=== PATIENT | female | born 1940 | race Hispanic/Latino ===

== ENCOUNTER → 2018-08-26 | Outpatient (CLI) | payer MEDICARE ==
[~2018-08-26] VITALS: Ht 157.5 cm; Wt 86.6 kg
[~2018-08-26] MED LIST: AMLO10TA7 PO; ATOR40TA71 PO; BENA20TA10 PO; GLIP5TAB11 PO; HYDR12.54 PO; INSU100V37 SQ; ISOS30TA6 PO; METF-446 PO; NITR0.4T50 SL; PIOG15TA66 PO; SODIUM CHLORIDE 0.9% 1000ML 1,000 ML IV SCH
[2018-08-26 10:30] VITALS: BP 142/51
[2018-08-26 10:53] LABS: BASOPHILS % (AUTO) 0.7 % (0.0-5.0); EOSINOPHILS % (AUTO) 2.4 % (0.0-8.0); HEMATOCRIT 29.7 % (36-48); LYMPHOCYTES % (AUTO) 20.7 % (21.0-51.0); MEAN CORPUSCULAR HEMOGLOBIN 28.3 pg (27.0-33.0); MEAN CORPUSCULAR HGB CONC 33.3 g/dL (32.0-36.0); MEAN CORPUSCULAR VOLUME 84.9 fL (79-99); NEUTROPHILS % (AUTO) 68.2 % (40.0-77.0); PLATELET COUNT (AUTO) 309 K/uL (130-400); WHITE BLOOD COUNT (AUTO) 8.9 K/uL (4.8-10.8)
[2018-08-26 11:05] LABS: APPEARANCE,URINE Cloudy (CLEAR); BILIRUBIN,URINE Negative (NEGATIVE); COLOR,URINE Yellow (YELLOW); GLUCOSE, URINE (UA) Negative (NEGATIVE); KETONES,URINE Trace mg/dL (NEGATIVE); LEUKOCYTE ESTERASE ,URINE Large (NEGATIVE); NITRATE,URINE Negative (NEGATIVE); OCCULT BLOOD,URINE Negative (NEGATIVE); PROTEIN,URINE Negative (NEGATIVE)
[2018-08-26 11:09] LABS: CREATININE 1.1 mg/dL (0.5-1.5)
--- NOTE | 2018-08-26 11:15 | NUR ---
NAURUAN PT PREFERS NAURUAN FOR INSTRUCTIONS AND CONSENT
[2018-08-26 11:25] LABS: BACTERIA,URINE Moderate /HPF (None Seen); MUCUS,URINE Few LPF (None Seen); RBC,URINE None Seen /HPF (0-1); WBC,URINE 51-100 /HPF (0-1)
[2018-08-26 12:14] LABS: INR 0.94 (0.85-1.15); PARTIAL THROMBOPLASTIN TIME 26.5 SEC (26.3-35.5); PROTHROMBIN TIME 9.9 SEC (9.6-11.6)
--- NOTE | 2018-08-27 13:33 | NUR ---
NOTE REPORTED ABNORMAL LABS H&H, UA, TO [facility], ORDERS ARE PER DR ABDUL, PT IS TO BE RESCHEDULED , AND FOLLOW UP IN HIS OFFICE NEXT WEEK
== END ==
LOC: EDSTATUS 10:00 → DAH 10:00
PROVIDERS: ATTEND Internal Medicine Cardiovascular Disease
DX: Z01.818 Encounter for other preprocedural examination (principal); I25.119 Atherosclerotic heart disease of native coronary artery with unspecified angina pectoris
CPT/HCPCS: 36415; 71045; 80048; 81001; 85025; 85610; 85730; 93005

== ENCOUNTER 2018-10-11 18:09 | Observation (INO) | payer MEDICARE ==
[~2018-10-11] VITALS: Ht 160 cm; Wt 85.0 kg
[~2018-10-11 18:09] MED LIST changes: -SODIUM CHLORIDE 0.9% 1000ML 1,000 ML IV SCH
[2018-10-11 18:34] LABS: BASOPHILS % (AUTO) 0.3 % (0.0-5.0); EOSINOPHILS % (AUTO) 3.3 % (0.0-8.0); HEMATOCRIT 30.3 % (36-48); LYMPHOCYTES % (AUTO) 26.1 % (21.0-51.0); MEAN CORPUSCULAR HEMOGLOBIN 28.7 pg (27.0-33.0); MEAN CORPUSCULAR HGB CONC 33.7 g/dL (32.0-36.0); MEAN CORPUSCULAR VOLUME 85.2 fL (79-99); MONOCYTES % (AUTO) 10.3 % (3.0-13.0); PLATELET COUNT (AUTO) 339 K/uL (130-400); RED BLOOD CELL COUNT(AUTO) 3.56 MIL/uL (4.00-5.50); RED CELL DISTRIBUTION WIDTH 14.2 % (11.0-15.5); WHITE BLOOD COUNT (AUTO) 8.1 K/uL (4.8-10.8)
[2018-10-11 18:47] LABS: CREATININE 1.2 mg/dL (0.5-1.5); INR 0.9 (0.85-1.15); PARTIAL THROMBOPLASTIN TIME 28.7 SEC (26.3-35.5); POTASSIUM 4.1 mmol/L (3.5-5.1); PROTHROMBIN TIME 9.5 SEC (9.6-11.6)
[2018-10-11 18:52] LABS: ALBUMIN 3.5 g/dL (3.5-5.0); BILIRUBIN,TOTAL 0.2 mg/dL (0.2-1.0); TOTAL PROTEIN, SERUM 7.4 g/dL (6.0-8.3)
[2018-10-11] MEDS ORDERED: DEXTROSE 50%-WATER 50 ML DISP.SYRIN IV ONE (20:13)
--- NOTE | 2018-10-11 23:25 | NUR ---
ASSESSMENT PATIENT TRANSFERRED FROM [facility]. DX: TIA. PATIENT DENIES CHEST PAIN, SHORTNESS OF BREATH AND NUMBNESS. ON ROOM AIR. RESPIRATIONS UNLABORED. SINUS RHYTHM HR 60'S. SEE DOCUMENTATION FOR FULL ASSESSMENT. CALL LIGHT WITHIN REACH. INSTRUCTED PATIENT AND FAMILY TO CALL IF ASSISTANCE IS NEEDED.
[2018-10-12] VITALS (7 sets, daily range): BP systolic 105–149; BP diastolic 47–94
[2018-10-12] MEDS ORDERED: ONDANSETRON HCL MDV 20ML 2 MG/ML VIAL IVP PRN (01:45)
[2018-10-12] MEDS ORDERED: ACETAMINOPHEN 325 MG TAB PO PRN (01:45)
[2018-10-12] MEDS ORDERED: PHARMACY COMMUNICATION MISC SCH (01:45)
[2018-10-12] MEDS ORDERED: LEVO500T89 PO (01:50)
[2018-10-12] MEDS ORDERED: KETO5DRO39 OU (01:50)
[2018-10-12] MEDS ORDERED: FERR325T22 PO (01:50)
--- NOTE | 2018-10-12 07:35 | NUR ---
ASSESSMENT ENCOUNTERED PT A&OX3, CALM COOPERATIVE AND DOES NOT APPEAR TO BE IN ANY DISTRESS NOR ANY NEURO DEFICITS PRESENT. PT DENIES PAIN, SOB, NAUSEA. PT IS ABLE TO TOLERATE FOODS AND FLUIDS WITH NO THROAT CLEARING OR COUGH. CALL LIGHT WITHIN REACH, FAMILY AT BEDSIDE.
[2018-10-12] MEDS ORDERED: LORAZEPAM 2 MG/ML 1 ML VIAL IVP SCH (12:00)
[2018-10-12] MEDS ORDERED: LORAZEPAM 2 MG/ML 1 ML VIAL ONE (12:05)
[2018-10-12] MEDS ORDERED: GUAIFENESIN-DM 200/20 MG 10 ML ONE (14:09)
[2018-10-12] MEDS: PANTOPRAZOLE SODIUM 40 MG TABLET.DR PO SCH (14:26)
[2018-10-12] MEDS: LEVOFLOXACIN 500 MG TABLET PO SCH (14:26)
[2018-10-12] MEDS: INSULIN HUMULIN R 100 UNIT/ML 3ML SQ SCH ×2 (16:30→22:17)
[2018-10-12] MEDS: SIMVASTATIN 20 MG TABLET PO SCH (21:00)
[2018-10-12] MEDS: GLIPIZIDE 5 MG TABLET PO SCH (22:21)
[2018-10-12] MEDS: ATORVASTATIN CALCIUM 40 MG TABLET PO SCH (22:21)
[2018-10-12] MEDS: GUAIFENESIN-DM 200/20 MG 10 ML PO PRN (22:22)
[2018-10-13 03:48] VITALS: BP 122/50
[2018-10-13 04:26] LABS: HEMATOCRIT 29.3 % (36-48); MEAN CORPUSCULAR HEMOGLOBIN 28.2 pg (27.0-33.0); MEAN CORPUSCULAR HGB CONC 33.5 g/dL (32.0-36.0); MEAN CORPUSCULAR VOLUME 84.2 fL (79-99); NUCLEATED RED BLOOD CELLS 0.1 % (0.0-0.19); PLATELET COUNT (AUTO) 328 K/uL (130-400); RED BLOOD CELL COUNT(AUTO) 3.48 MIL/uL (4.00-5.50)
[2018-10-13 04:33] LABS: HEMOGLOBIN A1C 7.9 % (4.0-6.0)
[2018-10-13 04:40] LABS: POTASSIUM 3.9 mmol/L (3.5-5.1)
[2018-10-13] MEDS: INSULIN HUMULIN R 100 UNIT/ML 3ML SQ SCH ×4 (05:53→21:00)
[2018-10-13 07:34] VITALS: BP 140/69
--- NOTE | 2018-10-13 08:35 | NUR ---
MD ROUNDS DR. TAMEZ IN TO SEE PATIENT. PT TO BE DISCHARGED HOME IF OKAY WITH DR. PEREZ.
[2018-10-13] MEDS: GUAIFENESIN-DM 200/20 MG 10 ML PO PRN (09:32)
[2018-10-13] MEDS: AMLODIPINE BESYLATE 5 MG TAB PO SCH (09:32)
[2018-10-13] MEDS: PIOGLITAZONE HCL 15 MG TAB PO SCH (09:32)
[2018-10-13] MEDS: HYDROCHLOROTHIAZIDE 25 MG TABLET PO SCH (09:33)
[2018-10-13] MEDS: PANTOPRAZOLE SODIUM 40 MG TABLET.DR PO SCH (09:33)
[2018-10-13] MEDS: FERROUS SULFATE 325 MG TABLET.DR PO SCH (09:33)
[2018-10-13] MEDS: BENAZEPRIL HCL 10 MG TABLET PO SCH (09:33)
[2018-10-13] MEDS: GLIPIZIDE 5 MG TABLET PO SCH ×2 (09:33→20:44)
--- NOTE | 2018-10-13 10:00 | NUR ---
MD ROUNDS DR. PEREZ IN TO SEE PT. NEW ORDERS RECEIVED TO BE CARRIED OUT.
--- NOTE | 2018-10-13 10:39 | NUR ---
INFORMED DR. TAMEZ OF NEW ORDERS FROM DR. PEREZ. PER DR. TAMEZ, LORI AND ENT CONSULT MAY BE DONE OUTPATIENT. PT IS OK TO START ASA 81 MG PO DAILY.
[2018-10-13 11:16] VITALS: BP 132/64
--- NOTE | 2018-10-13 11:20 | NUR ---
DYSPHAGIA EVAL COMPLETE. -S/S OF ASPIRATION. RECOMMEND REGULAR, THIN LIQUID DIET; PILLS WHOLE WITH LIQUIDS. PATIENT INFORMATION: Pt IS A 78 Y.O. FEMALE REFERRED FOR A BEDSIDE DYSPHAGIA EVALUATION SECONDARY TO TIA. Pt AAOX3 AND COOPERATIVE DURING THE EVALUATION. DAUGHTER PRESENT AT BEDSIDE DURING THE EVALUATION. DAUGHTER REPORTS SHE WAS PROMPTED TO BRING THE Pt TO ER SECONDARY TO SLURRED SPEECH AND NUMBNESS TO HER TONGUE; SYMPTOMS HAVE SINCE RESOLVED. Pt CURRENTLY ADMITTED SECONDARY TO TIA. Pt HAS A PAST MEDICAL HISTORY SIGNIFICANT FOR CHRONIC SYSTOLIC HEART FAILURE 50-55% EF OF 09/2018, DMII, CAD, ESSENTIAL HYPERTENSION, MORBID OBESITY, SUSPECTED OBSTRUCTIVE SLEEP APNEA, SCHEDULED HEART CATH . EVALUATION: SWALLOW FUNCTION AND EFFICIENCY WITHIN FUNCTIONAL LIMITS. ORAL MOTOR STRENGTH, COORDINATION, AND ROM WITHIN FUNCTIONAL LIMITS. LARYNGEAL ELEVATION/EXCURSION STRONG WITH TIMELY PHARYNGEAL RESPONSE. NO OVERT SIGNS OR SYMPTOMS OF ASPIRATION PRESENT AT BEDSIDE. VOCAL QUALITY CLEAR WITH NO THROAT CLEAR OR COUGH RESPONSE PRESENT. RECOMMENDATIONS: 1. REGULAR TEXTURE, THIN LIQUID DIET; PILLS WHOLE WITH LIQUIDS. 2. COMPENSATORY STRATEGIES (PROPHYLAXIS): *SEATED AT 90 DEGREE ANGLE G-CODES SWALLOWING: [id number] Addendum: 10/13/18 at 1314 by ISAC BRODERICK [facility] Amended: Links added.
--- NOTE | 2018-10-13 11:35 | NUR ---
COGNITIVE EVAL COMPLETE. COGNITIVE-LINGUISTIC ABILITIES WITHIN FUNCTIONAL LIMITS. PATIENT INFORMATION: Pt IS A 78 Y.O. FEMALE REFERRED FOR A COGNITIVE-LINGUISTIC EVALUATION SECONDARY TO TIA. Pt AAOX3 AND COOPERATIVE DURING THE EVALUATION. DAUGHTER PRESENT AT BEDSIDE DURING THE EVALUATION. DAUGHTER REPORTS SHE WAS PROMPTED TO BRING THE Pt TO ER SECONDARY TO SLURRED SPEECH AND NUMBNESS TO HER TONGUE; SYMPTOMS HAVE SINCE RESOLVED. Pt CURRENTLY ADMITTED SECONDARY TO TIA. Pt HAS A PAST MEDICAL HISTORY SIGNIFICANT FOR CHRONIC SYSTOLIC HEART FAILURE 50-55% EF OF 09/2018, DMII, CAD, ESSENTIAL HYPERTENSION, MORBID OBESITY, SUSPECTED OBSTRUCTIVE SLEEP APNEA, SCHEDULED HEART CATH . EVALUATION: Pt AAOX3. Pt REQUESTS WANTS AND NEEDS INDEPENDENTLY. Pt INTELLIGIBLE AT 100% ACCURACY TO THE UNFAMILIAR LISTENER. Pt COMMUNICATING AT CONVERSATIONAL LEVEL WITH NO DEFICITS IDENTIFIED AT THIS TIME. Pt COMPLETED COGNITIVE-LINGUISTIC EVALUATION TARGETING: ORIENTATION, ATTENTION/CONCENTRATION, MEMORY (IMMEDIATE, SHORT-TERM AND LONG-TERM), PROBLEM SOLVING, LOGIC/REASONING/INFERENCE, THOUGHT ORGANIZATION, FUNCTIONAL MATH AND TELLING TIME. Pt ABLE TO COMPLETE TASKS WITH CORRECT AND TIMELY ANSWERS TO ALL SECTIONS. G-CODES SPOKEN LANGUAGE EXPRESSION: [id number] Addendum: 10/13/18 at 1317 by ISAC BRODERICK [facility] Amended: Links added.
--- NOTE | 2018-10-13 11:37 | NUR ---
UPDATED DR. TAMEZ REGARDING OLRI. INFORMED HIM THAT CARDIOLOGY SPOKE WITH PATIENT AND DECIDED TO HAVE LORI TOMORROW. DR. TAMEZ AGREED. DISCHARGE TO BE HELD UNTIL FURTHER NOTICE.
[2018-10-13] MEDS: LEVOFLOXACIN 500 MG TABLET PO SCH (12:00)
--- NOTE | 2018-10-13 12:22 | NUR ---
RD Notification Patient tolerating Heart Healthy diet with no report of GI distress and PO intake at 100%. Patient LBM 10/11/18. Patient BMI 33.6 - Obesity Grade I. RD calculated adjusted nutrition needs. Patient monitored labs: BUN 22, GFR 57. RD to continue to monitor. Rec to continue on Heart Healthy Diet. Please notify RD as nutritional concerns arise. Thank you. Addendum: 10/13/18 at [address] Amended: Links added.
[2018-10-13 15:21] VITALS: BP 148/68
--- NOTE | 2018-10-13 16:15 | NUR ---
MD ROUNDS DR. BERNABE IN TO SEE PATIENT. HE AGREED WITH PATIENT TAKING ASA 81 MG PO DAILY. PT TO FOLLOW UP WITH DR. BERNABE IN 1 WEEK AFTER DISCHARGE.
[2018-10-13 17:10] LABS: BILIRUBIN,URINE Negative (NEGATIVE); COLOR,URINE Yellow (YELLOW); GLUCOSE, URINE (UA) Negative (NEGATIVE); KETONES,URINE Negative (NEGATIVE); LEUKOCYTE ESTERASE ,URINE Moderate (NEGATIVE); NITRATE,URINE Negative (NEGATIVE); OCCULT BLOOD,URINE Negative (NEGATIVE); PROTEIN,URINE Negative (NEGATIVE)
[2018-10-13 17:12] LABS: APPEARANCE,URINE CLEAR (CLEAR)
[2018-10-13 17:14] LABS: BACTERIA,URINE Rare /HPF (None Seen); RBC,URINE 0-1 /HPF (0-1)
[2018-10-13 17:15] LABS: SQUAMOUS EPITHELIAL CELL,UR Rare /HPF (0-2)
[2018-10-13 17:18] LABS: AMPHET/METH SCREEN,URINE NEGATIVE (NEGATIVE); BARBITURATE SCREEN, URINE NEGATIVE (NEGATIVE); BENZODIAZEPINES SCREEN,URINE NEGATIVE (NEGATIVE); CANNABINOID SCREEN,URINE NEGATIVE (NEGATIVE); COCAINE SCREEN,URINE NEGATIVE (NEGATIVE); OPIATE SCREEN,URINE NEGATIVE (NEGATIVE); PHENCYCLIDINE SCREEN,URINE NEGATIVE (NEGATIVE)
[2018-10-13 20:24] VITALS: BP 162/56
[2018-10-13] MEDS: SIMVASTATIN 20 MG TABLET PO SCH (20:43)
[2018-10-13] MEDS: ATORVASTATIN CALCIUM 40 MG TABLET PO SCH (20:43)
[2018-10-13] MEDS: ASPIRIN 81MG TAB.CHEW PO SCH (20:46)
--- NOTE | 2018-10-13 21:00 | NUR ---
PT IN BED, FAMILY AT BEDSIDE. ABLE TO AMBULATE WITHOUT ASSIST. NO SOB. NO PAIN. COUGH NOTED. ROBITUSSIN REQUESTED AT 10PM BEFORE NPO. PEDNING LORI PROCEDURE FOR 10/14. NPO AT MIDNIGHT. PT AWARE AND FAMILY WELL. PT RECEIVING ASPIRIN TONIGHT. STATES HAS HAD HISTORY OF BLEEDING WHEN TAKING ASPIRIN. DOCTOR AWARE AND STATES BENEFITS OUTWEIGHS THE RISKS. CALL LIGHT IN REACH. BED LOW. NO FURTHER CONCERNS AT THIS TIME.
[2018-10-13 23:47] VITALS: BP 142/71
[2018-10-14] VITALS (24 sets, daily range): BP systolic 103–157; BP diastolic 40–80
[2018-10-14] MEDS: INSULIN HUMULIN R 100 UNIT/ML 3ML SQ SCH ×3 (06:10→16:30)
--- NOTE | 2018-10-14 06:47 | NUR ---
DR. FREEMAN MAKING ROUNDS
[2018-10-14] MEDS: PANTOPRAZOLE SODIUM 40 MG TABLET.DR PO SCH (09:00)
[2018-10-14] MEDS: GLIPIZIDE 5 MG TABLET PO SCH (09:00)
[2018-10-14] MEDS: ASPIRIN 81MG TAB.CHEW PO SCH (09:00)
[2018-10-14] MEDS: HYDROCHLOROTHIAZIDE 25 MG TABLET PO SCH (09:00)
[2018-10-14] MEDS: PIOGLITAZONE HCL 15 MG TAB PO SCH (09:00)
[2018-10-14] MEDS: AMLODIPINE BESYLATE 5 MG TAB PO SCH (09:00)
[2018-10-14] MEDS: BENAZEPRIL HCL 10 MG TABLET PO SCH (09:00)
[2018-10-14] MEDS: FERROUS SULFATE 325 MG TABLET.DR PO SCH (09:00)
--- NOTE | 2018-10-14 09:00 | NUR ---
RESTING IN BED WITH HOB AT 30 DEGREES, RESP.'S EVEN AND UNLABORED. AA0X3, WATCHING TELEVISION. DENIES ANY C/O SOB, DENIES ANY CURRENT PAIN. NPO FOR LORI TODAY, VERBALIZED UNDERSTANDING; DENIES ANY QUESTIONS RE:LORI. COMPLETE ASSESSMENT DONE. CALL LIGHT WITHIN REACH, VERBALIZED ABILITY TO USE. BED LOW, SIDE RAILS UP X2. DAUGHTERS AT BEDSIDE.
[2018-10-14] MEDS ORDERED: MEPERIDINE HCL/PF 25 MG/0.5 ML AMPUL IVP SCH (11:00)
[2018-10-14] MEDS ORDERED: MIDAZOLAM HCL 1 MG/ML 5ML VIAL IVP SCH (11:00)
[2018-10-14] MEDS ORDERED: MEPERIDINE-PF 25 MG/ML SYG ONE (11:11)
[2018-10-14] MEDS ORDERED: MIDAZOLAM HCL 1 MG/ML 2ML VIAL ONE (11:11)
--- NOTE | 2018-10-14 11:11 | NUR ---
PT CARE at bedside - LORI performed by MD - conscious sedation administered by this RN under the supervision of MD. For procedure, pt placed on bedside monitor. VS documentation on separate flow sheet. Meds administered: versed 4mg IV push and demerol 50mg IV push - administered in increments. Refer to conscious sedation flow sheet for administration times. Pt monitored throughout procedure by this RN. Post observation in room continued by this RN. Procedure completed at approximately 1130. Pt drowsy post procedure - arousable with verbal stimulation. Pt able to respond to questions/commands. Post sedation recovery per policy.
[2018-10-14] MEDS ORDERED: LIDOCAINE HCL 2% VISCOUS 15 ML UDCUP PO SCH (11:15)
[2018-10-14] MEDS: LEVOFLOXACIN 500 MG TABLET PO SCH (11:37)
--- NOTE | 2018-10-14 13:15 | NUR ---
PT. SITTING UP IN BED WITH HOB AT SEMI-BRIGGS'S POSITION. FULLY AWAKE AND ALERT WATCHING TELEVISION AND SPEAKING WITH DAUGHTERS AT BEDSIDE. CALL LIGHT WITHIN REACH.
--- NOTE | 2018-10-14 13:40 | NUR ---
SITTING UP IN BED EATING LATE LUNCH. DENIES ANY C/O AT THIS TIME. CALL LIGHT WITHIN REACH. DAUGHTERS AT BEDSIDE.
--- NOTE | 2018-10-14 18:28 | NUR ---
HL REMOVED, CATHETER INTACT. DISCHARGE INSTRUCTIONS GIVEN, PT. AND DAUGHTERS AT BEDSIDE VERBALIZED MUTUAL UNDERSTANDING.
--- NOTE | 2018-10-14 19:59 | NUR ---
INCORRECT ENTRY. PT. NPO. Addendum: 10/14/18 at 1958 by THU ARANDA RN RN Amended: Links added.
== END 2018-10-14 18:37 | disposition home or self-care (01) ==
LOC: EDH 18:09 → EDHIP 20:36 → 2DH 10-12 00:02
PROVIDERS: ADMIT Internal Medicine Critical Care Medicine; ATTEND Internal Medicine Critical Care Medicine
DX: R47.81 Slurred speech (principal); R42 Dizziness and giddiness; E11.9 Type 2 diabetes mellitus without complications; I11.0 Hypertensive heart disease with heart failure; I50.32 Chronic diastolic (congestive) heart failure; I25.10 Atherosclerotic heart disease of native coronary artery without angina pectoris; I48.91 Unspecified atrial fibrillation; E66.01 Morbid (severe) obesity due to excess calories; Z80.8 Family history of malignant neoplasm of other organs or systems; Z82.49 Family history of ischemic heart disease and other diseases of the circulatory system; Z83.3 Family history of diabetes mellitus; Z79.899 Other long term (current) drug therapy; Z88.8 Allergy status to other drugs, medicaments and biological substances
CPT/HCPCS: 36415 ×2; 70450; 70544; 70547; 70551; 71045; 80048; 80053; 80061; 80305; 81001; 82550; 82948 ×12; 83036; 84484; 85025; 85027; 85610; 85730; 92522; 92610; 93005 ×2; 93306; 93313; 93880; 96372 ×2; 99284; G0378 ×70; J1815 ×2; J2060; J2175; J2250; J7070

== ENCOUNTER 2021-02-06 07:26 | Day surgery (SDC) | payer MEDICARE ==
[2021-02-03 12:34] LABS: BASOPHILS % (AUTO) 0.7 % (0.0-5.0); EOSINOPHILS % (AUTO) 1.8 % (0.0-8.0); HEMATOCRIT 34.3 % (36-48); LYMPHOCYTES % (AUTO) 17.8 % (21.0-51.0); MEAN CORPUSCULAR HEMOGLOBIN 26.6 pg (27.0-33.0); MEAN CORPUSCULAR HGB CONC 32.1 g/dL (32.0-36.0); MEAN CORPUSCULAR VOLUME 82.9 fL (79-99); MONOCYTES % (AUTO) 6.8 % (3.0-13.0); NEUTROPHILS % (AUTO) 72.5 % (40.0-77.0); PLATELET COUNT (AUTO) 356 K/uL (130-400); RED BLOOD CELL COUNT(AUTO) 4.14 MIL/uL (4.00-5.50); RED CELL DISTRIBUTION WIDTH 14.1 % (11.0-15.5); WHITE BLOOD COUNT (AUTO) 11.3 K/uL (4.8-10.8)
[2021-02-03 12:43] LABS: CREATININE 1.1 mg/dL (0.5-1.5); POTASSIUM 4.2 mmol/L (3.5-5.1)
[2021-02-03 12:48] LABS: INR 0.94 (0.85-1.15); PROTHROMBIN TIME 10.3 SEC (9.6-11.6)
[2021-02-03 12:49] LABS: APPEARANCE,URINE Cloudy (CLEAR); BILIRUBIN,URINE Negative (NEGATIVE); COLOR,URINE Yellow (YELLOW); GLUCOSE, URINE (UA) Negative (NEGATIVE); KETONES,URINE Trace mg/dL (NEGATIVE); LEUKOCYTE ESTERASE ,URINE Large (NEGATIVE); NITRATE,URINE Negative (NEGATIVE); OCCULT BLOOD,URINE Negative (NEGATIVE); PROTEIN,URINE POS 2+ mg/dL (NEGATIVE)
[2021-02-03 12:50] LABS: PARTIAL THROMBOPLASTIN TIME 24.8 SEC (26.3-35.5)
[2021-02-03 13:40] LABS: BACTERIA,URINE Few /HPF (None Seen)
[2021-02-03 13:41] LABS: RBC,URINE 0-1 /HPF (0-1)
[2021-02-03 14:07] VITALS: BP 185/82
[2021-02-06] VITALS (10 sets, daily range): BP systolic 124–164; BP diastolic 50–56
[~2021-02-06] VITALS: Ht 160 cm; Wt 81.2 kg
[~2021-02-06 07:26] MED LIST changes: +AMLO-258 PO; -AMLO10TA7 PO; +ASPI-1443 PO; -BENA20TA10 PO; +FLUT16H NASAL; +HYDR100T27 PO; -ISOS30TA6 PO; +KETO5DRO39 OU; +LORA10TA7 PO; +MAGN400C PO; +MONT10TA32 PO; -NITR0.4T50 SL; -PIOG15TA66 PO
[2021-02-06] MEDS ORDERED: NACL 0.9% 1000ML 1,000 ML IV SCH ×2 (08:00→12:00)
[2021-02-06] MEDS ORDERED: SULF1TAB89 PO (09:24)
[2021-02-06] MEDS ORDERED: BIVALIRUDIN 250 MG/VIAL IV ONE (10:54)
[2021-02-06] MEDS ORDERED: HEPARIN 10,000 UNIT/10ML (1,000 UNIT/ML) VIAL ONE (10:54)
[2021-02-06] MEDS ORDERED: IOHEXOL-350 75 ML VIAL IV ONE (10:55)
[2021-02-06] MEDS ORDERED: IOHEXOL 350 MG/ML 100ML INFUS..BTL IV ONE (10:55)
[2021-02-06] MEDS ORDERED: MIDAZOLAM HCL 1 MG/ML 2ML VIAL ONE (10:55)
[2021-02-06] MEDS ORDERED: NITROGLYCERIN 2 MG VIAL IV ONE (10:55)
[2021-02-06] MEDS ORDERED: NICARDIPINE 25MG INJ IV ONE (10:55)
[2021-02-06] MEDS ORDERED: FENTANYL CITRATE PF 50 MCG/1 ML 2ML VIAL ONE (10:55)
[2021-02-06] MEDS ORDERED: LIDOCAINE HCL 400MG/20ML VIAL ONE (10:56)
[2021-02-06] MEDS ORDERED: SODIUM BICARB 50MEQ 50ML VIAL 50 ML ONE (10:56)
[2021-02-06] MEDS ORDERED: IOHEXOL-350 50ML VIAL IV ONE (11:30)
[2021-02-06] MEDS ORDERED: GLUCAGON 1MG KIT 1 MG ML IM PRN (12:00)
[2021-02-06] MEDS ORDERED: INSULIN HUMULIN R 100 UNIT/ML 3ML SQ SCH ×8 (12:00→16:30)
[2021-02-06] MEDS ORDERED: DEXTROSE 50%-WATER 50 ML DISP.SYRIN IV PRN (12:00)
[2021-02-06] MEDS ORDERED: INSULIN LISPRO 100 UNIT/ML 3ML SQ SCH ×8 (12:00→16:30)
[2021-02-06] MEDS ORDERED: PHARMACY COMMUNICATION MISC SCH (12:15)
== END 2021-02-06 16:15 | disposition home or self-care (01) ==
LOC: DAH 07:26
PROVIDERS: ATTEND Internal Medicine Cardiovascular Disease
DX: I25.119 Atherosclerotic heart disease of native coronary artery with unspecified angina pectoris (principal); I10 Essential (primary) hypertension; E11.9 Type 2 diabetes mellitus without complications; E66.3 Overweight; Z95.5 Presence of coronary angioplasty implant and graft; Z82.49 Family history of ischemic heart disease and other diseases of the circulatory system; Z68.31 Body mass index [BMI] 31.0-31.9, adult; Z79.01 Long term (current) use of anticoagulants; Z79.899 Other long term (current) drug therapy; Z79.82 Long term (current) use of aspirin; Z79.84 Long term (current) use of oral hypoglycemic drugs; Z98.890 Other specified postprocedural states
CPT/HCPCS: 36415; 71045; 80048; 81001; 82948 ×2; 85025; 85610; 85730; 87088; 93005; 93458; A4215; A4216; A4221; A4222; A4223 ×3; A4606; A4663; C1760; C1894 ×2; J1644; J2250; J3010; J3490 ×3; J7030; Q9965; Q9967 ×2; 99156; 99157; J0583